=== PATIENT | female | born 1995 | race Caucasian/White ===

== ENCOUNTER 2018-01-05 07:20 | Outpatient (CLI) | payer OTHER ==
[~2018-01-05] VITALS: Ht 180.3 cm; Wt 72.7 kg
[2018-01-05] VITALS (7 sets, daily range): BP systolic 111–125; BP diastolic 71–84; PULSE 76–98; TEMP 98.2
[2018-01-05 08:31] LABS: MEAN CELL VOLUME 82 fl (80.0-95.0); MEAN CORPUSCULAR HGB CONC 32 g/dl (33.0-37.0); MEAN PLATELET VOLUME 9.8 fl (7.4-10.4); PLATELET COUNT 234 K/mm3 (130-400); RED BLOOD COUNT 4.42 M/mm3 (4.10-5.30); REDCELL DISTRIBUTION WIDTH-CV 13.7 % (11.5-14.5)
[2018-01-05] MEDS ORDERED: ASPIRIN 81M81 MG/TA2 PO (08:31)
[2018-01-05 08:33] LABS: HEMATOCRIT 36.1 % (35.0-45.0); HEMOGLOBIN 11.5 g/dl (12.0-15.0); MEAN CORPUSCULAR HEMOGLOBIN 26 pg (26.0-32.0)
[2018-01-05 08:36] LABS: INR 1.1 (0.8-3.0); PROTHROMBIN TIME 13.2 SECONDS (9.7-12.8)
[2018-01-05 08:42] LABS: CALCIUM 9.7 mg/dL (8.4-10.2); CREATININE, serum 0.68 mg/dL (0.52-1.25); POTASSIUM 3.6 mmol/L (3.4-5.0)
== END 2018-01-05 13:12 | disposition home or self-care (01) ==
LOC: COL.RAD 07:20
PROVIDERS: Internal Medicine Cardiovascular Disease
DX: H54.7 Unspecified visual loss (principal); R93.1 Abnormal findings on diagnostic imaging of heart and coronary circulation
CPT/HCPCS: J2175; J2250; J7050; Q9967

== ENCOUNTER → 2018-01-18 | Outpatient (CLI) | payer OTHER ==
[~2018-01-18] MED LIST: ASPIRIN 81M81 MG/TA2 PO
== END ==
LOC: COL.RAD 07:17
DX: G45.3 Amaurosis fugax (principal)
CPT/HCPCS: Q9967

== ENCOUNTER 2019-02-19 21:46 | Emergency (ER) | payer OTHER ==
[~2019-02-19] VITALS: Ht 180.3 cm; Wt 70.5 kg
[2019-02-19 22:12] VITALS: TEMP 98.4
[2019-02-20 02:30] VITALS: BP 118/76; PULSE 88
== END 2019-02-20 02:30 | disposition home or self-care (01) ==
LOC: COL.ER 21:46
DX: M25.511 Pain in right shoulder (principal); W22.8XXA Striking against or struck by other objects, initial encounter; Y92.009 Unspecified place in unspecified non-institutional (private) residence as the place of occurrence of the external cause

== ENCOUNTER 2019-07-31 21:36 | Emergency (ER) | payer OTHER ==
[~2019-07-31] VITALS: Ht 180.3 cm; Wt 70.5 kg
[2019-07-31 21:42] VITALS: TEMP 98.6
[2019-07-31 22:15] VITALS: BP 116/87; PULSE 80
== END 2019-07-31 22:15 | disposition home or self-care (01) ==
LOC: COL.ER 21:36
DX: F07.81 Postconcussional syndrome (principal); R51 Headache; R11.0 Nausea; H53.149 Visual discomfort, unspecified